=== PATIENT | male | born 1970 | race Caucasian/White ===

== ENCOUNTER 2021-01-03 07:37 | Emergency (ER) | payer MEDICARE ==
[~2021-01-03 07:37] MED LIST: ASPIRIN EC325 MG PO; CIPRO500 MG PO; CUBICIN 500 MG500 MG IV; FLOMAX 0.4 MG0.4 MG PO; HABITROL 14 MG P1 EA TOP; HYDROCODON-ACE1 EAC4 PO; IBU800 MG PO; IBUPROFEN800 MG PO; KEFLEX500 MG PO; OXYCODONE HCL10 MG PO; VITAMIN C 500500 MG PO; ZOFRAN4 MG PO
[2021-01-03 09:04] LABS: HEMOGLOBIN 16.4 gm/dl (14.0-17.5); RED BLOOD COUNT 5.38 M/UL (4.20-5.50)
[2021-01-03 21:40] LABS: ACINETOBACTER BAUMANNII Not Detected (Negative); CANDIDA ALBICANS Not Detected (Negative); CANDIDA KRUSEI Not Detected (Negative); CANDIDA TROPICALIS Not Detected (Negative); ENTEROCOCCUS Not Detected (Negative); ESCHERICHIA COLI Not Detected (Negative); HAEMOPHILUS INFLUENZAE Not Detected (Negative); KLEBSIELLA OXYTOCA Not Detected (Negative); KLEBSIELLA PNEUMONIAE Not Detected (Negative); KPC-CARBAPENEM-RESISTANCE GENE Not Detected (Negative); PROTEUS Not Detected (Negative); PSEUDOMONAS AERUGINOSA Not Detected (Negative); SERRATIA MARCESANS Not Detected (Negative); STREP AGALACTIAE (GROUP B) Not Detected (Negative); STREP PYOGENES (GROUP A) Not Detected (Negative); STREPTOCOCCUS Not Detected (Negative); mecA (METHICILLIN RESIST GENE Not Detected (Negative); vanA/B (VANCOMYCIN RESIST GENE Not Detected (Negative)
[2021-01-03 21:44] LABS: STAPHYLOCOCCUS DETECTED (Negative); STAPHYLOCOCCUS AUREUS DETECTED (Negative)
== END 2021-01-03 12:00 | disposition other institution (70) ==
LOC: ER1 07:37
PROVIDERS: Physician Assistant
DX: A41.9 Sepsis, unspecified organism (principal); J18.9 Pneumonia, unspecified organism; I62.9 Nontraumatic intracranial hemorrhage, unspecified; N17.9 Acute kidney failure, unspecified; E87.1 Hypo-osmolality and hyponatremia; F17.200 Nicotine dependence, unspecified, uncomplicated
CPT/HCPCS: 0240U; 36415; 70450; 71045; 80053; 82550; 82553; 83605; 83874; 84484; 85025; 85652; 86140; 87040; 87077; 87150; 87186; 93005; 96365; 96366; 96375; 99285; J0692; J2270; J2405; J3370

== ENCOUNTER → 2021-03-23 | Outpatient (CLI) | payer MEDICARE ==
[~2021-03-23] MED LIST changes: +LACTULOSE20 GM/30 M PO
[2021-03-23 14:02] LABS: HEMOGLOBIN 11.1 gm/dl (14.0-17.5); RED BLOOD COUNT 4.19 M/UL (4.20-5.50); WHITE BLOOD COUNT 9.2 K/UL (4.5-11.0)
[2021-03-23 14:23] LABS: BUN/CREATININE RATIO 12 (0-10)
[2021-03-24 08:15] LABS: HBSAG SCREEN Negative (Negative); HEP A AB, IGM Negative (Negative); HEP B CORE AB, IGM Negative (Negative); HEP C VIRUS AB >11.0 (0.0-0.9); HIV SCREEN 4TH GENERATION WRFX Non Reactive (Non Reactive)
[2021-03-24 14:15] LABS: TREPONEMA PALLIDUM ANTIBODIES Non Reactive (Non Reactive)
== END ==
LOC: LAB 12:56
DX: A41.9 Sepsis, unspecified organism (principal); Z79.899 Other long term (current) drug therapy; Z03.89 Encounter for observation for other suspected diseases and conditions ruled out; F11.11 Opioid abuse, in remission; Z11.3 Encounter for screening for infections with a predominantly sexual mode of transmission; Z11.4 Encounter for screening for human immunodeficiency virus [HIV]; Z20.828 Contact with and (suspected) exposure to other viral communicable diseases
CPT/HCPCS: 36415; 80053; 80061; 80074; 85027; 86780; 87389

== ENCOUNTER 2021-04-16 16:53 | Emergency (ER) | payer MEDICARE ==
[~2021-04-16 16:53] MED LIST changes: -LACTULOSE20 GM/30 M PO
[2021-04-16 19:05] LABS: HEMOGLOBIN 11.1 gm/dl (14.0-17.5); RED BLOOD COUNT 4.15 M/UL (4.20-5.50); WHITE BLOOD COUNT 8.1 K/UL (4.5-11.0)
[2021-04-16 19:22] LABS: BUN/CREATININE RATIO 15 (0-10)
[2021-04-16] MEDS ORDERED: LACTULOSE20 GM/30 M PO (19:44)
== END 2021-04-16 20:00 | disposition home or self-care (01) ==
LOC: ER1 16:53
PROVIDERS: Emergency Medicine
DX: K59.00 Constipation, unspecified (principal); F11.90 Opioid use, unspecified, uncomplicated; F17.200 Nicotine dependence, unspecified, uncomplicated
CPT/HCPCS: 80053; 81001; 83605; 83690; 85025; 87040; 96372; 99284; J2212

== ENCOUNTER → 2021-04-28 | Outpatient (CLI) | payer MEDICARE ==
[~2021-04-28] MED LIST changes: +LACTULOSE20 GM/30 M PO
== END ==
LOC: EMI 09:53
DX: I96 Gangrene, not elsewhere classified (principal); Z89.422 Acquired absence of other left toe(s)
CPT/HCPCS: 73718

== ENCOUNTER → 2021-05-11 | Outpatient (CLI) | payer MEDICARE ==
[2021-05-11 14:02] LABS: HEMOGLOBIN 11.7 gm/dl (14.0-17.5); RED BLOOD COUNT 4.52 M/UL (4.20-5.50); WHITE BLOOD COUNT 9.1 K/UL (4.5-11.0)
[2021-05-11 15:28] LABS: BUN/CREATININE RATIO 26 (0-10)
== END ==
LOC: LAB 13:03
PROVIDERS: Podiatrist Foot & Ankle Surgery
DX: G06.0 Intracranial abscess and granuloma (principal); M21.969 Unspecified acquired deformity of unspecified lower leg; L03.90 Cellulitis, unspecified
CPT/HCPCS: 36415; 80053; 85027; 85652; 86140

== ENCOUNTER → 2021-11-01 | Outpatient (CLI) | payer MEDICARE | LOC: KOH-I 15:30 | DX: M17.12 Unilateral primary osteoarthritis, left knee (principal); M19.011 Primary osteoarthritis, right shoulder; M19.012 Primary osteoarthritis, left shoulder | CPT/HCPCS: 73030; 73562 ==

== ENCOUNTER → 2022-02-22 | Outpatient (CLI) | payer MEDICARE | LOC: EMI 13:44 | DX: M54.12 Radiculopathy, cervical region (principal); M47.812 Spondylosis without myelopathy or radiculopathy, cervical region | CPT/HCPCS: 72156; A9577 ==